=== PATIENT | male | born 1945 | race Caucasian/White ===

== ENCOUNTER 2017-01-06 12:39 | Emergency (ER) | payer OTHER ==
[~2017-01-06] VITALS: Ht 167.6 cm; Wt 100.0 kg
[2017-01-06 12:54] VITALS: Ht 167.6 cm; Wt 100.0 kg
--- NOTE | 2017-01-06 13:07 | ERA ---
ER Documentation Chief Complaint Date/Time DATE: 01/06/17 TIME: 13:06 Chief Complaint HYPOGLYCEMIA AND SLURRED SPEECH HAPPENED THIS MORNING HPI 71-year-old male with a history of diabetes mellitus type 2 on oral hypoglycemics, hypertension, dyslipidemia, chronic renal insufficiency and coronary artery disease status post three-vessel CABG brought to the ED via rescue ambulance altered mental status. Upon awakening today patient felt lightheaded with slurred speech and thought he was having a stroke. Paramedics were called. His blood sugar was 40 mg/dL and improved immediately after D50 1 amp. Arrival to the ED is asymptomatic. Denies chest pain or palpitations. No shortness of breath or cough. No abdominal pain, nausea or vomiting. Denies leg pain or swelling. No skin rash. Denies headache or neck pain. No visual changes, focal weakness or numbness. No URI symptoms, rhinorrhea or odynophagia. No fevers or chills. ROS All systems reviewed and are negative except as per history of present illness. Medications Home Meds Reported Medications Ezetimibe* (Zetia*) 10 Mg Tablet, 10 MG PO HS, TAB 01/06/17 Multivit/Ca Carb/B Cmplx/Fa* (Radha-Melany*) 1 Tab Tab, 1 TAB PO DAILY, TAB 01/06/17 Calcitriol* (Rocaltrol*) 0.25 Mcg Capsule, 0.25 MCG PO DAILY, CAP 01/06/17 Zolpidem Tartrate* (Ambien*) 10 Mg Tablet, 10 MG PO QHS Y for INSOMNIA, TAB 01/06/17 Calcium Acetate* (Calcium Acetate*) 667 Mg Capsule, 1334 MG PO BID WITH MEALS, # 60 CAP 01/06/17 Sitagliptin* (Januvia*) 50 Mg Tablet, 50 MG PO DAILY, #30 TAB 01/06/17 Glimepiride* (Glimepiride*) 4 Mg Tablet, 6 MG PO WITH BREAKFAST, TAB 01/06/17 Furosemide* (Lasix*) 40 Mg Tablet, 120 MG PO DAILY, TAB 01/06/17 Terazosin Hcl* (Terazosin Hcl*) 10 Mg Capsule, 10 MG PO HS, CAP 01/06/17 Pioglitazone Hcl* (Actos*) 30 Mg Tablet, 30 MG PO DAILY, #30 TAB 01/06/17 Amlodipine Besylate* (Amlodipine Besylate*) 10 Mg Tablet, 10 MG PO DAILY, #30 TAB 01/06/17 Simvastatin* (Zocor*) 40 Mg Tablet, 40 MG PO QHS, #30 TAB 01/06/17 Lisinopril* (Lisinopril*) 10 Mg Tablet, 10 MG PO DAILY, #30 TAB 01/06/17 Allergies Allergies: Coded Allergies: Penicillins (Verified Allergy, Unknown, 01/06/17) codeine (Unverified Allergy, Unknown, 01/06/17) PMhx/Soc Reviewed in chart. As per HPI. History of Surgery: Yes (Cholecystectomy, CABG) Hx Neurological Disorder: No Hx Respiratory Disorders: No Hx Cardiac Disorders: Yes (Coronary artery disease, hypertension) Hx Psychiatric Problems: No Hx Miscellaneous Medical Probl: Yes (Dyslipidemia) Hx Alcohol Use: No Hx Substance Use: No Hx Tobacco Use: No FmHx Diabetes and hypertension. No family history of cancer or stroke. Physical Exam Vitals Vital Signs Date Time Temp Pulse Resp B/P Pulse Ox O2 Delivery O2 Flow Rate FiO2 01/06/17 12:54 98.7 84 18 112/50 100 Physical Exam Const: Alert and oriented. No acute distress. Head: Atraumatic Eyes: Normal Conjunctiva. Pupils equal reactive light, extraocular movements are intact. ENT: Normal External Ears, Nose and Mouth. Neck: Full range of motion.. Nontender. No JVD. Resp: Breath sounds are equal and clear to auscultation bilaterally Cardio: Regular rate and rhythm, no murmurs. Chest wall: Status post median sternotomy. Abd: Soft, obese, non tender, distended. Normal bowel sounds Skin: No petechiae or rashes Back: No midline or flank tenderness Ext: No cyanosis, or edema Neur: Awake and alert. Cranial nerves II through XII are grossly intact. Motor and sensory equal bilaterally. Gait is normal. No focal deficit. Psych: Normal Mood and Affect. Does not appear anxious or depressed. Result Diagram: 01/06/17 1330 01/06/17 1330 Results 24 hrs Laboratory Tests Test 01/06/17 13:10 01/06/17 13:30 01/06/17 13:38 01/06/17 14:09 Bedside Glucose 58mg/dL 181mg/dL 154mg/dL Anion Gap 17 Basophils # 0.010^3/ul Basophils % 0.1% Blood Morphology Comment Blood Urea Nitrogen 43mg/dl Calcium Level 9.1mg/dl Carbon Dioxide Level 26mmol/L Chloride Level 104mmol/L Creatinine 3.04mg/dl Eosinophils # 0.010^3/ul Eosinophils % 0.1% Glucose Level 69mg/dl Hematocrit 25.4% Hemoglobin 8.5g/dl Lymphocytes # 0.210^3/ul Lymphocytes % 5.2% Mean Corpuscular Hemoglobin 30.2pg Mean Corpuscular Hemoglobin Concent 33.4g/dl Mean Corpuscular Volume 90.3fl Mean Platelet Volume 9.2fl Monocytes # 0.410^3/ul Monocytes % 12.4% Neutrophils # 2.610^3/ul Neutrophils % 82.2% Nucleated Red Blood Cells # 0.010^3/ul Nucleated Red Blood Cells % 0.0/100WBC Platelet Count 34415^3/UL Potassium Level 5.1mmol/L Red Blood Count 2.8210^6/ul Red Cell Distribution Width 14.8% Sodium Level 142mmol/L Troponin I < 0.012ng/ml Urine Bacteria RARE Urine Bilirubin NEGATIVE Urine Clarity CLEAR Urine Color LT. YELLOW Urine Epithelial Cells RARE Urine Glucose NEGATIVE% Urine Hemoglobin TRACE Urine Ketones NEGATIVE Urine Leukocyte Esterase NEGATIVE Urine Microscopic RBC 0-2/HPF Urine Microscopic WBC 0-2/HPF Urine Nitrite NEGATIVE Urine Specific [place] 1.010 Urine Total Protein NEGATIVE Urine Urobilinogen 0.2 E.U./dL Urine pH 6.0 White Blood Count 3.210^3/ul Test 01/06/17 14:44 Bedside Glucose 123mg/dL Current Medications Medications (Trade) Dose Ordered Sig/Lynne Route PRN Reason Start Time Stop Time Status Last Admin Dose Admin Dextrose (D50w Syringe) 50 ml NOW STAT IV 01/06/17 13:11 01/06/17 13:13 DC Ondansetron HCl (Zofran Inj) 4 mg ER BRIDGE PRN IV NAUSEA AND/OR VOMITING 01/06/17 15:00 01/07/17 14:59 Acetaminophen (Tylenol Tab) 650 mg ER BRIDGE PRN PO MILD PAIN/FEVER 01/06/17 15:00 01/07/17 14:59 RHYTHM STRIP INTERPRETATION: Time: 13:15. Sinus rhythm. Occasional PVCs. Ventricular rate 75. Indication: Altered mental status. EKG: TIME: 13:31. Sinus rhythm. Ventricular rate 71. Occasional PVCs. Septal Q waves in leads V1 and V2. No acute ST segment elevation or depression. Normal axis. EP Interpretation: Abnormal EKG. IMAGING: PROCEDURE: XR Chest. CLINICAL INDICATION: Chest pain. Low blood sugar. Hypoglycemia. TECHNIQUE: Single frontal chest x-ray. COMPARISON: None. FINDINGS: The lungs are clear. No focal opacification is seen. The cardiomediastinal silhouette is remarkable for significant cardiomegaly. Postsurgical changes are identified from prior CABG surgery. The osseous structures are unremarkable. IMPRESSION: 1. Cardiomegaly with post CABG residuals. 2. Otherwise, unremarkable chest x-ray. RPTAT: PP .Last Sommers MD, MD Date Time Electronically viewed and signed by .Last Sommers MD, on 01/06/2017 13:27 .B/ Procedures/MDM DOCUMENTS REVIEWED: ED nurse no prior records available MEDICAL DECISION MAKIN-year-old male with a history of diabetes mellitus type 2 on oral hypoglycemics, hypertension, dyslipidemia, chronic renal insufficiency and coronary artery disease status post three-vessel CABG brought to the ED via rescue ambulance altered mental status. Patient with hyperglycemia responded to glycemic replacement and again on arrival to the ED his Accu-Chek was 58 and required a amp of D50. He also receives oral nutrition however his Accu-Chek is again decreasing. No evidence of an occult infectious process. No chest pain, ischemic EKG changes or other signs of acute coronary syndrome. Anemia and pancytopenia of uncertain etiology but likely related to chronic kidney disease. Denies abdominal pain, hematemesis, hematochezia or melanotic stools. Does not want a rectal exam. Patient required admission for further evaluation and treatment. At 15:50 patient is refusing admission. He clearly understands the risks including sudden and permanent disability. His roommate is at the bedside. Despite my best evidence of those of nursing staff were unable to convince him otherwise and he is insisting on signing out AGAINST MEDICAL ADVICE. He is alert, oriented and understands the implications of his actions. Counseled patient regarding diagnosis, diagnostic results and plan for admission. CALLS/CONSULTS: Time 14:40, Dr. Garcia Recommends admission to telemetry. PATIENT CARE TRANSITIONED: Time: 14:45, Dr. Garcia. Departure Diagnosis: Primary Impression: Hypoglycemia Additional Impressions: Altered level of consciousness History of coronary artery disease History of coronary artery bypass graft Chronic renal insufficiency Qualified Code: N18.9 - Chronic renal insufficiency, unspecified stage Anemia Qualified Code: D64.9 - Anemia, unspecified type Condition: Serious DANA MITCHELL MD Jan 06, 2017 13:06
[2017-01-06] MEDS ORDERED: DEXTROSE 50% 50 ML SYRINGE IV STA (13:11)
--- NOTE | 2017-01-06 13:28 | RADRPT ---
PROCEDURE: XR Chest. CLINICAL INDICATION: Chest pain. Low blood sugar. Hypoglycemia. TECHNIQUE: Single frontal chest x-ray. COMPARISON: None. FINDINGS: The lungs are clear. No focal opacification is seen. The cardiomediastinal silhouette is remarkabl e for significant cardiomegaly. Postsurgical changes are identified from prior CABG surgery. The o sseous structures are unremarkable. IMPRESSION: 1. Cardiomegaly with post CABG residuals. 2. Otherwise, unremarkable chest x-ray. RPTAT: PP .Last Sommers MD, MD Date Time Electronically viewed and signed by .Last Sommers MD, on 01/06/2017 13:27 .B/
[2017-01-06 13:53] LABS: ADD UMIC YES; BASOPHILS % 0.1 % (0.0-2.0); EOSINOPHILS % 0.1 % (0.0-7.0); HEMATOCRIT 25.4 % (42.0-52.0); HEMOGLOBIN 8.5 g/dl (14.0-18.0); LYMPHOCYTES # 0.2 10^3/ul (0.8-2.9); LYMPHOCYTES % 5.2 % (15.0-51.0); MEAN CORPUSCULAR HEMOGLOBIN 30.2 pg (29.0-33.0); MEAN CORPUSCULAR HGB CONC 33.4 g/dl (32.0-37.0); MEAN CORPUSCULAR VOLUME 90.3 fl (82.0-101.0); MEAN PLATELET VOLUME 9.2 fl (7.4-10.4); MONOCYTE # 0.4 10^3/ul (0.3-0.9); MONOCYTES % 12.4 % (0.0-11.0); NEUTROPHIL # 2.6 10^3/ul (1.6-7.5); NEUTROPHILS % 82.2 % (39.0-77.0); PLATELET COUNT 127 10^3/UL (140-440); RED BLOOD COUNT 2.82 10^6/ul (4.70-6.10); RED CELL DISTRIBUTION WIDTH 14.8 % (11.5-14.5); UNCORRECTED WBC 3.2 10^3/ul (4.8-10.8); URINE BILIRUBIN (Dip) NEGATIVE (NEGATIVE); URINE BLOOD (Dip) TRACE (NEGATIVE); URINE COLOR LT. YELLOW (YELLOW); URINE GLUCOSE (Dip) NEGATIVE (NEGATIVE); URINE KETONES (Dip) NEGATIVE (NEGATIVE); URINE LEUKOCYTE ESTERASE (Dip) NEGATIVE (NEGATIVE); URINE NITRITE (Dip) NEGATIVE (NEGATIVE); URINE TOTAL PROTEIN (Dip) NEGATIVE (NEGATIVE); URINE UROBILINOGEN (Dip) 0.2 E.U./dL (0.1-1.0); WHITE BLOOD COUNT 3.2 10^3/ul (4.8-10.8)
[2017-01-06 13:55] LABS: POTASSIUM 5.1 mmol/L (3.5-5.1)
[2017-01-06 13:57] LABS: CONDITION 1; CREATININE 3.04 mg/dl (0.61-1.24); LH ANALYZER COMMENTS 1
[2017-01-06 13:59] LABS: CALCIUM 9.1 mg/dl (8.4-10.2)
[2017-01-06 14:13] LABS: URINE RBCS 0-2 /HPF (0)
[2017-01-06 14:14] LABS: BACTERIA,URINE RARE
[2017-01-06] MEDS ORDERED: ONDANSETRON 4 MG INJ IV PRN (15:00)
[2017-01-06] MEDS ORDERED: ACETAMINOPHEN 325 MG TAB PO PRN (15:00)
[2017-01-06] MEDS ORDERED: SIMV40TA2 PO (15:04)
[2017-01-06] MEDS ORDERED: LISI10TA2 PO (15:04)
[2017-01-06] MEDS ORDERED: AMLO-147 PO (15:05)
[2017-01-06] MEDS ORDERED: PIOG30TA2 PO (15:05)
[2017-01-06] MEDS ORDERED: TERA10CA42 PO (15:06)
[2017-01-06] MEDS ORDERED: FURO-109 PO (15:23)
[2017-01-06] MEDS ORDERED: GLIM4TAB PO (15:24)
[2017-01-06] MEDS ORDERED: ZOLP10TA PO (15:25)
[2017-01-06] MEDS ORDERED: SITA50TA2 PO (15:25)
[2017-01-06] MEDS ORDERED: CALC667C PO (15:25)
[2017-01-06] MEDS ORDERED: CALC0.255 PO (15:26)
[2017-01-06] MEDS ORDERED: NEPH PO (15:26)
[2017-01-06] MEDS ORDERED: EZET10TA3 PO (15:26)
[2017-01-06] MEDS ORDERED: FER325 PO (15:27)
[2017-01-06] MEDS ORDERED: ASPI-664 PO (15:27)
[2017-01-06] MEDS ORDERED: BEN25 PO (15:27)
[2017-01-06] MEDS ORDERED: DOCU-144 PO (15:28)
[2017-01-06 15:35] VITALS: BP 137/78; PULSE 76; RESP 18
== END 2017-01-06 15:47 | disposition left against medical advice (07) ==
LOC: E/R 12:39
DX: E11.649 Type 2 diabetes mellitus with hypoglycemia without coma (principal); I25.10 Atherosclerotic heart disease of native coronary artery without angina pectoris; N18.9 Chronic kidney disease, unspecified; D64.9 Anemia, unspecified; I12.9 Hypertensive chronic kidney disease with stage 1 through stage 4 chronic kidney disease, or unspecified chronic kidney disease; Z79.84 Long term (current) use of oral hypoglycemic drugs; Z95.1 Presence of aortocoronary bypass graft
CPT/HCPCS: 71010; 80048; 81001; 81003; 82962; 84484; 85025; 93005